=== PATIENT | female | born 1945 | race Asian ===

== ENCOUNTER 2019-06-05 09:59 | Inpatient (IN) | payer MEDICARE, OTHER ==
[~2019-06-05] VITALS: Ht 152.4 cm; Wt 45.0 kg
[~2019-06-05 09:59] MED LIST: ACET500C5 PO; CEFU500T45 PO; DULO60CA60 PO; FLUT16SP17 NASAL; GABA-526 PO; GABA-528 PO; GUAI-637 PO; GUAI-752 PO; IPRA4AER INHALATION; ISON300T18 PO; LEVO250T22 PO; PANT40TA4 PO; POLY255P PO; RSV10T PO; ZOLP5TAB7 PO
[2019-06-05] MEDS ORDERED: KETOROLAC 15 MG INJ IV STA (12:36)
[2019-06-05] MEDS ORDERED: VANCOMYCIN 1 GM (PMX) 250 ML IVPB STA (15:17)
[2019-06-05] MEDS ORDERED: CEFEPIME 2GM/50 ML (PMX) 50 ML IVPB STA (15:17)
[2019-06-05] MEDS ORDERED: ONDANSETRON 4 MG INJ IV PRN ×2 (15:30→17:00)
[2019-06-05] MEDS ORDERED: ACETAMINOPHEN 325 MG TAB PO PRN ×2 (15:30→17:00)
[2019-06-05] MEDS ORDERED: VANCOMYCIN IV PER PHARMACY XX SCH (17:00)
[2019-06-05] MEDS ORDERED: NACL 0.9% 3 ML SYG IV SCH (17:00)
[2019-06-05] MEDS ORDERED: HYDROCODONE/APAP (5/325) TAB PO PRN (17:00)
[2019-06-05] MEDS ORDERED: GUAIFENESIN/DM 5ML CUP PO PRN (17:30)
[2019-06-05] MEDS ORDERED: ALBUTEROL/IPRATROPIUM (NEB) 3 ML AMP HHN PRN (17:30)
[2019-06-05 17:44] VITALS: BP 169/86; PULSE 93; RESP 19
[2019-06-05] MEDS: hydrALAzine 20 MG INJ IV PRN (19:02)
[2019-06-05 19:25] VITALS: BP 143/67; PULSE 95
[2019-06-05 19:44] VITALS: BP 158/68; PULSE 91; RESP 18
[2019-06-05 21:00] VITALS: BP 158/66; PULSE 93; RESP 18
[2019-06-05 21:40] VITALS: Ht 152.4 cm; Wt 45.0 kg
[2019-06-05] MEDS: GABAPENTIN 300 MG CAP PO SCH (21:49)
[2019-06-06] VITALS (7 sets, daily range): BP systolic 122–168; BP diastolic 58–182; PULSE 97–120; RESP 17
[2019-06-06] MEDS: hydrALAzine 20 MG INJ IV PRN (02:37)
[2019-06-06] MEDS: DULOXETINE 30 MG CAP DR PO SCH (08:47)
[2019-06-06] MEDS: GABAPENTIN 300 MG CAP PO SCH ×2 (08:48→20:20)
[2019-06-06] MEDS: ENOXAPARIN 40 MG/0.4 ML SYG SC SCH (08:49)
[2019-06-06] MEDS: CEFEPIME 1GM/50 ML (PMX) 50 ML IVPB SCH (16:15)
[2019-06-06] MEDS ORDERED: VANCOMYCIN 1 GM 250 ML IVPB SCH (17:00)
[2019-06-06] MEDS: VANCOMYCIN 750 MG (PMX) 250 ML IVPB SCH (17:10)
[2019-06-07 02:00] VITALS: BP 151/75; PULSE 93; RESP 17
[2019-06-07 08:04] VITALS: BP 159/76; PULSE 95; RESP 16
[2019-06-07] MEDS: DULOXETINE 30 MG CAP DR PO SCH ×2 (09:00→15:15)
[2019-06-07] MEDS: ENOXAPARIN 40 MG/0.4 ML SYG SC SCH ×2 (09:00→15:16)
[2019-06-07] MEDS: GABAPENTIN 300 MG CAP PO SCH ×3 (09:00→21:52)
[2019-06-07] MEDS ORDERED: LIDOCAINE 2% (MDV) 20 ML INJ ONE (09:08)
[2019-06-07] MEDS ORDERED: ONDANSETRON 4 MG INJ ONE (09:27)
[2019-06-07] MEDS ORDERED: ROCURONIUM 50 MG INJ ONE (09:27)
[2019-06-07] MEDS ORDERED: PROPOFOL 200 ML ONE (09:27)
[2019-06-07] MEDS ORDERED: FENTAnyl 50 MCG/ML VIAL ONE (09:27)
[2019-06-07] MEDS ORDERED: LIDOCAINE 2% (SDV) 5 ML INJ ONE (09:27)
[2019-06-07 14:33] VITALS: BP 154/77; PULSE 99; RESP 18
[2019-06-07] MEDS: CEFEPIME 1GM/50 ML (PMX) 50 ML IVPB SCH (15:14)
[2019-06-07] MEDS: VANCOMYCIN 750 MG (PMX) 250 ML IVPB SCH (17:10)
[2019-06-07 20:00] VITALS: BP 140/65; PULSE 97; RESP 19
[2019-06-07] MEDS: GUAIFENESIN LA 600 MG TABSR PO SCH (21:52)
[2019-06-08 02:00] VITALS: BP 151/73; PULSE 94; RESP 18
[2019-06-08 07:15] VITALS: BP 152/70; PULSE 94; RESP 16
[2019-06-08] MEDS: GUAIFENESIN LA 600 MG TABSR PO SCH ×2 (09:02→22:33)
[2019-06-08] MEDS: ENOXAPARIN 40 MG/0.4 ML SYG SC SCH (09:02)
[2019-06-08] MEDS: GABAPENTIN 300 MG CAP PO SCH ×2 (09:02→22:33)
[2019-06-08] MEDS: DULOXETINE 30 MG CAP DR PO SCH (09:03)
[2019-06-08] MEDS ORDERED: NACL 3% FOR INHALATION 15 ML NEBU NEB ONE (10:30)
[2019-06-08 14:16] VITALS: BP 147/71; PULSE 94; RESP 18
[2019-06-08] MEDS: CEFEPIME 1GM/50 ML (PMX) 50 ML IVPB SCH (16:28)
[2019-06-08] MEDS: VANCOMYCIN 750 MG (PMX) 250 ML IVPB SCH (17:19)
[2019-06-08 20:00] VITALS: BP 167/79; PULSE 101; RESP 19
[2019-06-09 02:00] VITALS: BP 152/67; PULSE 100; RESP 19
[2019-06-09] MEDS: VANCOMYCIN 500 MG (PMX) 100 ML IVPB SCH ×2 (05:37→18:31)
[2019-06-09 08:00] VITALS: BP 169/78; PULSE 104; RESP 18
[2019-06-09] MEDS ORDERED: hydrALAzine 20 MG INJ IV PRN (10:00)
[2019-06-09] MEDS: GABAPENTIN 300 MG CAP PO SCH ×2 (10:16→21:39)
[2019-06-09] MEDS: DULOXETINE 30 MG CAP DR PO SCH (10:16)
[2019-06-09] MEDS: GUAIFENESIN LA 600 MG TABSR PO SCH ×2 (10:16→21:38)
[2019-06-09] MEDS: ENOXAPARIN 40 MG/0.4 ML SYG SC SCH (10:17)
[2019-06-09 14:00] VITALS: BP 118/59; PULSE 103; RESP 18
[2019-06-09] MEDS: CEFEPIME 1GM/50 ML (PMX) 50 ML IVPB SCH (17:45)
[2019-06-09 20:00] VITALS: BP 129/64; PULSE 91; RESP 18
[2019-06-10 02:00] VITALS: BP 158/72; PULSE 96; RESP 18
[2019-06-10] MEDS: VANCOMYCIN 500 MG (PMX) 100 ML IVPB SCH ×2 (04:54→17:55)
[2019-06-10 08:00] VITALS: BP 139/66; PULSE 99; RESP 20
[2019-06-10] MEDS: DULOXETINE 30 MG CAP DR PO SCH (09:32)
[2019-06-10] MEDS: GUAIFENESIN LA 600 MG TABSR PO SCH ×2 (09:32→21:48)
[2019-06-10] MEDS: GABAPENTIN 300 MG CAP PO SCH ×2 (09:32→21:48)
[2019-06-10] MEDS: AMLODIPINE 5 MG TAB PO SCH (09:33)
[2019-06-10] MEDS: ENOXAPARIN 40 MG/0.4 ML SYG SC SCH (09:34)
[2019-06-10 14:40] VITALS: BP 130/71; PULSE 84; RESP 18
[2019-06-10] MEDS: CEFEPIME 1GM/50 ML (PMX) 50 ML IVPB SCH (17:12)
[2019-06-10 19:55] VITALS: BP 137/65; PULSE 98; RESP 17
[2019-06-11] VITALS (9 sets, daily range): BP systolic 115–175; BP diastolic 57–77; PULSE 88–129; RESP 16–18
[2019-06-11] MEDS: hydrALAzine 20 MG INJ IV PRN (03:44)
[2019-06-11] MEDS: VANCOMYCIN 750 MG (PMX) 250 ML IVPB SCH ×2 (06:10→17:06)
[2019-06-11] MEDS: DULOXETINE 30 MG CAP DR PO SCH (09:01)
[2019-06-11] MEDS: GABAPENTIN 300 MG CAP PO SCH ×2 (09:01→21:39)
[2019-06-11] MEDS: GUAIFENESIN LA 600 MG TABSR PO SCH ×2 (09:01→21:39)
[2019-06-11] MEDS: AMLODIPINE 5 MG TAB PO SCH (09:01)
[2019-06-11] MEDS: ENOXAPARIN 40 MG/0.4 ML SYG SC SCH (09:04)
[2019-06-11] MEDS: CEFEPIME 1GM/50 ML (PMX) 50 ML IVPB SCH (16:09)
[2019-06-12 02:25] VITALS: BP 149/68; PULSE 98; RESP 18
[2019-06-12 08:47] VITALS: BP 136/65; PULSE 116; RESP 18
[2019-06-12] MEDS: ENOXAPARIN 40 MG/0.4 ML SYG SC SCH (09:45)
[2019-06-12] MEDS: GUAIFENESIN LA 600 MG TABSR PO SCH ×2 (09:46→22:16)
[2019-06-12] MEDS: GABAPENTIN 300 MG CAP PO SCH ×2 (09:46→22:16)
[2019-06-12] MEDS: AMLODIPINE 5 MG TAB PO SCH (09:46)
[2019-06-12] MEDS: DULOXETINE 30 MG CAP DR PO SCH (09:46)
[2019-06-12 14:41] VITALS: BP 115/58; PULSE 108; RESP 18
[2019-06-12 20:00] VITALS: BP 137/63; PULSE 100; RESP 18
[2019-06-13 02:00] VITALS: BP 151/72; PULSE 102; RESP 18
[2019-06-13 07:15] VITALS: BP 148/70; PULSE 102; RESP 16
[2019-06-13] MEDS: GABAPENTIN 300 MG CAP PO SCH ×2 (08:14→21:09)
[2019-06-13] MEDS: DULOXETINE 30 MG CAP DR PO SCH (08:15)
[2019-06-13] MEDS: AMLODIPINE 5 MG TAB PO SCH (08:15)
[2019-06-13] MEDS: ENOXAPARIN 40 MG/0.4 ML SYG SC SCH (08:15)
[2019-06-13] MEDS: GUAIFENESIN LA 600 MG TABSR PO SCH ×2 (08:15→21:09)
[2019-06-13 14:17] VITALS: BP 129/60; PULSE 95; RESP 18
[2019-06-13 20:00] VITALS: BP 155/75; PULSE 116; RESP 18
[2019-06-14 02:00] VITALS: BP 136/65; RESP 18
[2019-06-14 08:21] VITALS: BP 144/71; PULSE 115; RESP 16
[2019-06-14] MEDS: GUAIFENESIN LA 600 MG TABSR PO SCH ×2 (09:10→21:06)
[2019-06-14] MEDS: DULOXETINE 30 MG CAP DR PO SCH (09:11)
[2019-06-14] MEDS: AMLODIPINE 5 MG TAB PO SCH (09:11)
[2019-06-14] MEDS: ENOXAPARIN 40 MG/0.4 ML SYG SC SCH (09:13)
[2019-06-14] MEDS: GABAPENTIN 300 MG CAP PO SCH ×2 (09:22→21:06)
[2019-06-14 15:02] VITALS: BP 119/56; PULSE 95; RESP 18
[2019-06-14 20:00] VITALS: BP 116/55; PULSE 101; RESP 18
[2019-06-15 02:09] VITALS: BP 149/73; RESP 19
[2019-06-15 08:16] VITALS: BP 149/71; PULSE 113; RESP 18
[2019-06-15] MEDS: GUAIFENESIN LA 600 MG TABSR PO SCH (08:57)
[2019-06-15] MEDS: DULOXETINE 30 MG CAP DR PO SCH (08:57)
[2019-06-15] MEDS: GABAPENTIN 300 MG CAP PO SCH (08:57)
[2019-06-15] MEDS: AMLODIPINE 5 MG TAB PO SCH (08:57)
[2019-06-15] MEDS: ENOXAPARIN 40 MG/0.4 ML SYG SC SCH (09:02)
[2019-06-15 09:05] VITALS: BP 137/66; PULSE 107; RESP 16
[2019-06-15] MEDS ORDERED: CEFEPIME 1GM/50 ML (PMX) 50 ML IVPB SCH (11:30)
[2019-06-15] MEDS ORDERED: VANCOMYCIN 750 MG (PMX) 250 ML IVPB SCH (11:30)
[2019-06-15] MEDS ORDERED: VANCOMYCIN IV PER PHARMACY XX SCH (11:30)
[2019-06-15 11:54] VITALS: PULSE 106
[2019-06-15] MEDS ORDERED: VANCOMYCIN 1 GM 250 ML IVPB SCH (12:00)
[2019-06-15 14:30] VITALS: BP 124/62; PULSE 105; RESP 17
[2019-06-16] MEDS ORDERED: VANCOMYCIN 750 MG (PMX) 250 ML IVPB SCH
== END 2019-06-15 18:22 | disposition home or self-care (01) | DRG 194 ==
LOC: E/R 09:59 → 2NE 15:28 → 5EC 20:35
PROVIDERS: ADMIT Internal Medicine; ATTEND Internal Medicine
DX: J18.9 Pneumonia, unspecified organism (principal); J90 Pleural effusion, not elsewhere classified; J98.11 Atelectasis; E44.0 Moderate protein-calorie malnutrition; Z68.1 Body mass index [BMI] 19.9 or less, adult; G62.9 Polyneuropathy, unspecified; E78.5 Hyperlipidemia, unspecified; H17.9 Unspecified corneal scar and opacity; H54.8 Legal blindness, as defined in USA; R91.8 Other nonspecific abnormal finding of lung field; R00.0 Tachycardia, unspecified; Z53.29 Procedure and treatment not carried out because of patient's decision for other reasons; Z87.01 Personal history of pneumonia (recurrent)
CPT/HCPCS: 36415; 71045; 71250; 80048; 80053; 80061; 80202; 83036; 83735; 83880; 84100; 84145; 84439; 84443; 85025; 87070; 87081; 87086; 87116; 89220; 93005; 93970; 96374; J0360; J0692; J1650; J1885; J2405; J3010; J3370